=== PATIENT | male | born 1945 | race Two or more races ===

== ENCOUNTER → 2024-02-26 | Outpatient (CLI) | payer OTHER ==
[2024-02-26 07:40] LABS: Basophils # (auto) 0 10 ^3/uL (0-0.2); Basophils % (auto) 0.2 % (0.0-2.0); Eosinophils # (auto) 0.1 10 ^3/uL (0-0.8); Eosinophils % (auto) 1.5 % (0.0-7.0); Hematocrit 32.2 % (41.0-53.0); Hemoglobin 10.8 g/dL (13.5-17.5); Lymphocytes # (auto) 1.6 10 ^3/uL (0.4-5.4); Lymphocytes % (auto) 28.1 % (10.0-50.0); Mean Corpuscular Hemoglobin 31.9 pg (28.0-32.0); Mean Corpuscular Hgb Conc. 33.4 g/dL (32.0-36.0); Mean Corpuscular Volume 95.3 fL (80.0-100.0); Monocytes # (auto) 0.4 10 ^3/uL (0-1.3); Monocytes % (auto) 6.3 % (0.0-12.0); Neutrophils # (auto) 3.7 10 ^3/uL (1.6-8.6); Neutrophils % (auto) 63.9 % (37.0-80.0); Red Blood Cells 3.38 10^6/uL (4.5-5.90); Red Cell Distribution Width 16.2 % (11.8-14.3); White Blood Cell 5.7 10^3/uL (4.4-10.8)
[2024-02-26 08:05] LABS: Albumin 4.3 g/dL (3.2-4.8); Alkaline Phosphatase 87 U/L (46-116); Anion Gap 10 (5-15); Aspartate Aminotransferase 14 U/L (13-40); Bilirubin, Total 0.6 mg/dL (0.2-1.0); Blood Urea Nitrogen 23 mg/dL (9-23); Calcium 10.4 mg/dL (8.7-10.4); Carbon Dioxide 27 mmol/L (20-30); Chloride 104 mmol/L (98-107); Cholesterol 92 mg/dL (< 200); Glucose 87 mg/dL (74-106); HDL Cholesterol 53 mg/dL (40-59); LDL Cholesterol 20 mg/dL (< 100); Magnesium 1.9 mg/dL (1.6-2.6); Sodium 141 mmol/L (136-145); Triglycerides 84 mg/dL (< 150)
[2024-02-26 08:07] LABS: Alanine Aminotransferase < 9 U/L (7-40)
[2024-02-26 08:56] LABS: Uric Acid 5.5 mg/dL (3.7-9.2)
[2024-02-26 10:32] LABS: Folate (Folic Acid) 15.38 ng/mL (>5.38)
== END | disposition home or self-care (01) ==
LOC: EDBD 06:54 → LAB 06:54
PROVIDERS: ATTEND Internal Medicine
DX: N18.6 End stage renal disease (principal); Z00.00 Encounter for general adult medical examination without abnormal findings
CPT/HCPCS: 36415; 80053; 80061; 82306; 82607; 82746; 83036; 83735; 84443; 84550; 85025

== ENCOUNTER → 2024-04-09 | Outpatient (CLI) | payer OTHER ==
[2024-04-09 09:46] LABS: Basophils # (auto) 0 10 ^3/uL (0-0.2); Basophils % (auto) 0.7 % (0.0-2.0); Eosinophils # (auto) 0.1 10 ^3/uL (0-0.8); Eosinophils % (auto) 1.9 % (0.0-7.0); Hematocrit 31.6 % (41.0-53.0); Hemoglobin 10.5 g/dL (13.5-17.5); Lymphocytes # (auto) 0.9 10 ^3/uL (0.4-5.4); Lymphocytes % (auto) 22.5 % (10.0-50.0); Mean Corpuscular Hemoglobin 32.9 pg (28.0-32.0); Mean Corpuscular Hgb Conc. 33.3 g/dL (32.0-36.0); Mean Corpuscular Volume 98.8 fL (80.0-100.0); Monocytes # (auto) 0.3 10 ^3/uL (0-1.3); Monocytes % (auto) 6.2 % (0.0-12.0); Neutrophils # (auto) 2.8 10 ^3/uL (1.6-8.6); Neutrophils % (auto) 68.7 % (37.0-80.0); Nucleated Red Blood Cells % 0.1 %; Platelet Count (auto) 154 10^3/uL (140-450); Red Cell Distribution Width 16.4 % (11.8-14.3)
[2024-04-09 11:08] LABS: Alanine Aminotransferase 19 U/L (7-40); Albumin 4.7 g/dL (3.2-4.8); Alkaline Phosphatase 84 U/L (46-116); Anion Gap 12 (5-15); Aspartate Aminotransferase 18 U/L (13-40); BUN/Creatinine Ratio 4.2 (10.0-20.0); Bilirubin, Total 0.9 mg/dL (0.2-1.0); Blood Urea Nitrogen 21 mg/dL (9-23); Carbon Dioxide 28 mmol/L (20-30); Chloride 100 mmol/L (98-107); Cholesterol 101 mg/dL (< 200); Glucose 83 mg/dL (74-106); HDL Cholesterol 66 mg/dL (40-59); LDL Cholesterol 24 mg/dL (< 100); Magnesium 1.8 mg/dL (1.6-2.6); Potassium 3.6 mmol/L (3.5-5.1); Sodium 140 mmol/L (136-145); Total Protein 7.4 g/dL (5.7-8.2); Triglycerides 68 mg/dL (< 150)
[2024-04-09 11:42] LABS: Folate (Folic Acid) 39.93 ng/mL (>5.38)
[2024-04-09 11:49] LABS: Uric Acid 2.6 mg/dL (3.7-9.2)
== END | disposition home or self-care (01) ==
LOC: LAB 09:24
PROVIDERS: ATTEND Internal Medicine
DX: E03.9 Hypothyroidism, unspecified (principal); M79.89 Other specified soft tissue disorders; N18.6 End stage renal disease; D63.1 Anemia in chronic kidney disease; I89.0 Lymphedema, not elsewhere classified
CPT/HCPCS: 36415; 80053; 80061; 82306; 82607; 82746; 83036; 83735; 84443; 84550; 85025

== ENCOUNTER → 2024-07-25 | Outpatient (CLI) | payer OTHER ==
[2024-07-25 10:22] LABS: Basophils # (auto) 0 10 ^3/uL (0-0.2); Basophils % (auto) 0.3 % (0.0-2.0); Eosinophils # (auto) 0 10 ^3/uL (0-0.8); Eosinophils % (auto) 0.8 % (0.0-7.0); Hematocrit 33.9 % (41.0-53.0); Hemoglobin 11.4 g/dL (13.5-17.5); Lymphocytes % (auto) 25.8 % (10.0-50.0); Mean Corpuscular Hemoglobin 30.8 pg (28.0-32.0); Mean Corpuscular Hgb Conc. 33.5 g/dL (32.0-36.0); Mean Corpuscular Volume 92.1 fL (80.0-100.0); Monocytes # (auto) 0.3 10 ^3/uL (0-1.3); Monocytes % (auto) 8.5 % (0.0-12.0); Neutrophils # (auto) 2.5 10 ^3/uL (1.6-8.6); Neutrophils % (auto) 64.6 % (37.0-80.0); Platelet Count (auto) 162 10^3/uL (140-450); Red Blood Cells 3.69 10^6/uL (4.5-5.90); Red Cell Distribution Width 14.3 % (11.8-14.3); White Blood Cell 3.9 10^3/uL (4.4-10.8)
[2024-07-25 10:41] LABS: Alanine Aminotransferase 14 U/L (7-40); Anion Gap 9 (5-15); BUN/Creatinine Ratio 3.5 (10.0-20.0); Blood Urea Nitrogen 15 mg/dL (9-23); Carbon Dioxide 29 mmol/L (20-31); Chloride 102 mmol/L (98-107); Glucose 85 mg/dL (74-106); LDL Cholesterol 28 mg/dL (< 100); Potassium 3.8 mmol/L (3.5-5.1); Sodium 140 mmol/L (136-145); Triglycerides 73 mg/dL (< 150)
[2024-07-25 10:42] LABS: Albumin 4.2 g/dL (3.2-4.8); Aspartate Aminotransferase 17 U/L (13-40); Bilirubin, Total 0.5 mg/dL (0.2-1.0); Cholesterol 111 mg/dL (< 200); Total Protein 6.9 g/dL (5.7-8.2)
[2024-07-25 10:45] LABS: Alkaline Phosphatase 126 U/L (46-116); HDL Cholesterol 71 mg/dL (40-59)
[2024-07-25 11:30] LABS: Uric Acid 1.9 mg/dL (3.7-9.2)
[2024-07-25 11:43] LABS: Folate (Folic Acid) > 48.00 ng/mL (>5.38)
== END | disposition home or self-care (01) ==
LOC: LAB 09:52
PROVIDERS: ATTEND Nurse Practitioner Family
DX: E78.5 Hyperlipidemia, unspecified (principal); R79.89 Other specified abnormal findings of blood chemistry; R68.89 Other general symptoms and signs; R73.09 Other abnormal glucose
CPT/HCPCS: 36415; 80053; 80061; 82306; 82607; 82746; 83036; 84443; 84550; 85025

== ENCOUNTER 2024-09-18 13:34 | Emergency (ER) | payer OTHER ==
[~2024-09-18] VITALS: Ht 157.5 cm; Wt 58.1 kg
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
[2024-09-18 15:35] LABS: Carbon Dioxide 30 mmol/L (20-31); Potassium 4.8 mmol/L (3.5-5.1)
[2024-09-18 15:36] LABS: Calcium 9.6 mg/dL (8.7-10.4)
[2024-09-18 15:41] LABS: BUN/Creatinine Ratio 4.9 (10.0-20.0); Glucose 91 mg/dL (74-106)
[2024-09-18 15:44] LABS: Blood Urea Nitrogen 39 mg/dL (9-23); Chloride 97 mmol/L (98-107)
[2024-09-18 15:45] LABS: Basophils # (auto) 0 10 ^3/uL (0-0.2); Basophils % (auto) 0.5 % (0.0-2.0); Eosinophils # (auto) 0 10 ^3/uL (0-0.8); Eosinophils % (auto) 0.8 % (0.0-7.0); Hematocrit 38.1 % (41.0-53.0); Hemoglobin 12.3 g/dL (13.5-17.5); Lymphocytes # (auto) 1.2 10 ^3/uL (0.4-5.4); Lymphocytes % (auto) 20.3 % (10.0-50.0); Mean Corpuscular Hemoglobin 30.7 pg (28.0-32.0); Mean Corpuscular Hgb Conc. 32.3 g/dL (32.0-36.0); Monocytes # (auto) 0.6 10 ^3/uL (0-1.3); Monocytes % (auto) 10.2 % (0.0-12.0); Neutrophils % (auto) 68.2 % (37.0-80.0); Nucleated Red Blood Cells % 0.2 %; Platelet Count (auto) 153 10^3/uL (140-450); Red Blood Cells 4.01 10^6/uL (4.5-5.90); Red Cell Distribution Width 16.4 % (11.8-14.3); White Blood Cell 5.9 10^3/uL (4.4-10.8)
[2024-09-18 16:46] LABS: Anion Gap 12 (5-15); Sodium 139 mmol/L (136-145)
[2024-09-18] MEDS: CATHFLO ACTIVASE (ALTEPLASE) 2 MG VIAL IV ONE (18:36)
[2024-09-18 18:52] VITALS: BP 154/86; PULSE 114; RESP 17; TEMP 97.7; O2SAT 100
== END 2024-09-18 18:54 | disposition home or self-care (01) ==
LOC: ER 13:34
DX: T82.49XA Other complication of vascular dialysis catheter, initial encounter (principal); I10 Essential (primary) hypertension; Z99.2 Dependence on renal dialysis; X58.XXXA Exposure to other specified factors, initial encounter; Y93.89 Activity, other specified; Y92.89 Other specified places as the place of occurrence of the external cause; Y99.8 Other external cause status
CPT/HCPCS: 36415; 80048; 85025; 99283; J2997

== ENCOUNTER 2025-02-18 10:26 | Inpatient (IN) | payer MEDICARE, OTHER ==
[~2025-02-18] VITALS: Ht 165.1 cm; Wt 55.5 kg
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
[2025-02-18 11:46] LABS: Hematocrit 35.6 % (41.0-53.0); Hemoglobin 11.9 g/dL (13.5-17.5); Mean Corpuscular Hemoglobin 31.7 pg (28.0-32.0); Mean Corpuscular Volume 95.1 fL (80.0-100.0); Nucleated Red Blood Cells % 0.1 %
[2025-02-18 11:47] LABS: Chloride 101 mmol/L (98-107); Sodium 139 mmol/L (136-145)
[2025-02-18 11:48] LABS: Anion Gap 11 (5-15); Carbon Dioxide 27 mmol/L (20-31)
[2025-02-18 11:53] LABS: BUN/Creatinine Ratio 2.3 (10.0-20.0); Blood Urea Nitrogen 11 mg/dL (9-23); Glucose 76 mg/dL (74-106)
[2025-02-18 11:55] LABS: Calcium 8.5 mg/dL (8.7-10.4); Potassium 3.4 mmol/L (3.5-5.1)
[2025-02-18] MEDS ORDERED: ONDANSETRON HCL 4 MG/2 ML VIAL IV PRN (16:00)
[2025-02-18] MEDS ORDERED: ACETAMINOPHEN 325 MG TAB PO PRN (16:00)
[2025-02-18] MEDS ORDERED: DOCUSATE SOD 100 MG CAP PO PRN (16:00)
[2025-02-18] MEDS ORDERED: HYDROcodone-ACET 5/325MG TAB PO PRN (16:00)
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
[2025-02-18] MEDS ORDERED: NITROGLYCERIN 0.4 MG SL TAB SL PRN ×2 (18:00→18:15)
[2025-02-18] MEDS ORDERED: MORPHINE SULFATE INJ 2 MG/ml SYRG IV PRN ×2 (18:00→18:15)
[2025-02-18 19:30] VITALS: PULSE 76; RESP 12; O2SAT 99
[2025-02-18 20:14] LABS: Free T3 1.85 pg/mL (2.3-4.2); Free T4 (Free Thyroxine) 0.67 ng/dL (0.89-1.76)
[2025-02-18] MEDS: SEVELAMER 800 MG TAB PO SCH (20:43)
[2025-02-18 22:15] VITALS: BP 117/71; PULSE 77; RESP 16; TEMP 97.9; O2SAT 99
[2025-02-18 22:30] VITALS: BP 166/30; PULSE 75; PULSE 76; RESP 18; TEMP 98.5; O2SAT 99
[2025-02-18] MEDS ORDERED: LISI-275 PO (23:01)
[2025-02-18] MEDS ORDERED: CLON0.1T PO (23:01)
[2025-02-18] MEDS ORDERED: BUME1TAB3 PO (23:01)
[2025-02-18] MEDS ORDERED: CITA10TA5 PO (23:01)
[2025-02-18] MEDS ORDERED: HYDR-4902 PO (23:01)
[2025-02-18] MEDS ORDERED: GAB100C PO (23:01)
[2025-02-19] VITALS (9 sets, daily range): BP systolic 115–150; BP diastolic 56–86; PULSE 70–92; RESP 16–22; TEMP 97.1–98.4; O2SAT 90–100
[2025-02-19] MEDS: LEVOTHYROXINE SODIUM 50 MCG TAB PO ONE (02:29)
[2025-02-19] MEDS: SODIUM CHLOR 0.9% PF (SALINE LOCK) 10ML VIAL/SYR IV SCH (02:30)
[2025-02-19] MEDS ORDERED: LEVOTHYROXINE SODIUM 50 MCG TAB PO SCH (06:00)
[2025-02-19] MEDS: LEVOTHYROXINE SODIUM 25 MCG TAB PO SCH (06:40)
--- NOTE | 2025-02-19 08:46 | DVH ---
ULTRASOUND SOFT TISSUE HEAD AND NECK CLINICAL INDICATION: Elevated TSH TECHNIQUE: Multiple real time sonographic images of the thyroid were obtained. Comparison: None FINDINGS: The right thyroid gland measures 3.6 x 2.1 x 2.1 cm. The left thyroid gland measures approximately 3.8 x 1.1 x 1.3 cm. The isthmus measures 0.4 cm. IMPRESSION: 1. Normal Thyroid. [employer] TI-RADS Categories and Recommendations (2017): TR1: 0 points, Benign, No FNA TR2: 2 points, Not suspicious, No FNA TR3: 3 points, Mildly suspicious, FNA if > or = 2.5 cm, Follow if > or = 1.5 cm TR4: 4-6 points, Moderately Suspicious, FNA if > or = 1.5 cm, Follow if > or = 1.0 cm TR5: 7+ points, Highly Suspicious, FNA if > or = 1.0 cm, Follow if > or = 0.5 cm Follow-up ultrasound guidelines: TR5: yearly for 5 years, if no growth or change in TI-RADS level TR4: at 1, 2, 3 and 5 years, if no growth or change in TI-RADS level TR3: at 1, 3 and 5 years, if no growth or change in TI-RADS level If increased but below threshold for FNA, repeat in one year. Source: ACR Thyroid Imaging, Reporting and Data System (TI-RADS): White Paper of the ACR TI-RADS Committee. Jeanine hawkins al., J Am Anushka Radiol 2017;14:587-595.
[2025-02-19] MEDS: B-COMPLEX W/ C & FOLIC ACID(NEPHROVITE TAB) PO SCH (09:04)
--- NOTE | 2025-02-19 11:23 | DVH ---
CHEST RADIOGRAPH Indication: esrd Technique: Single frontal view of the chest was obtained Comparison: None FINDINGS: Lines and Tubes: None Lungs: No focal consolidation. Pleura: No effusion. No pneumothorax. Cardiomediastinal contours: Cardiomegaly. Bones: No acute osseous abnormality. IMPRESSION: Cardiomegaly with pulmonary edema.
--- NOTE | 2025-02-19 15:28 | DVHPNRES ---
Progress Note Date Seen: Feb 19, 2025 Resident Creating Document: RYAN VICTORIA RESIDENT Medical Necessity Reason Pt with a Central, PICC or Fol: No Subjective Review of Systems Patient is an 80-year-old male with past medical history of chronic renal failure and end-stage renal disease on hemodialysis who presented to [facility] ER for evaluation of abnormal lab. On normal lab reports done on February 17 at the dialysis center the patient was found to have a TSH level of 60 and he was asked to go to the ER for further evaluation. . Ultrasound was done which was found to be normal. Patient complains of back pain since 2 weeks. The patient's son reports that the patient has been feeling tired and sleepy and has lost appetite in the last 1 month. The patient's son mentions that he was put on a trial medication in the dialysis center a few weeks back which caused a decrease in his platelets. The patient was noted to have swelling in the right upper extremity for which ultrasound was done and a thrombus was reported in the jugular and cephalic veins. Heparin bolus was given and heparin drip was started for the same. Patient seen and examined at bedside. Patient is alert and oriented to time, place person and responding to all questions. Eyes: No Pain, No Vision change, No Conjunctivae inflammation, No Eyelid inflammation, No Other, No Redness ENT: No Ear pain, No Ear discharge, No Nose pain, No Nose discharge, No Nose congestion, No Mouth pain, No Mouth swelling, No Throat pain, No Throat swelling, No Other Cardiovascular: No Chest Pain, No Palpitations, No Orthopnea, No Paroxysmal No Dyspnea, No Edema, No Lt Headedness, No Other Respiratory: No Cough, No Dry, No Shortness of breath, No SOB with exertion, No Wheezing, No Hemoptysis, No Pleuritic Pain, No Sputum, No Other Gastrointestinal: No Nausea, No Vomiting, No Abdominal Pain, No Diarrhea, No Constipation, No Melena, No Hematochezia, No Other Genitourinary: No Dysuria, No Frequency, No Incontinence, No Hematuria, No Retention, No Other General Appearance: Cooperative. Well developed. Well nourished. NAD Head Exam: Normal inspection Neck Exam: Normal inspection. Non-tender. Normal alignment Pulmonary/Respiratory: Chest non-tender. Clear bilateral breath sounds, no crackles, no wheezing. Cardiovascular/Chest: Regular rate and rhythm. No murmurs. No JVD. Peripheral Pulses: 2+ Radial (R). 2+ Radial (L). 2+ Pedal (R). 2+ Pedal (L) Abdominal Exam: Normal bowel sounds. Soft. normal abdomen, no visible veins, Nontender. No hepatospenomegaly. No masses Ankle Exam: Negative ankle edema Lower extremities: Negative lower extremity edema Neuro/Mental Status: A&O x4. Coherent. Thoughts/Psych: Normal thought pattern. Appropriate mood and affect. Good judgement and insight Skin Exam: swelling on the right upper extremity with no conduction Objective vital signs Vital Sign Date Time Temp Pulse Resp B/P (MAP) Pulse Ox O2 Delivery O2 Flow Rate FiO2 02/19/25 13:00 97.9 92 22 150/85 (106) 98 97.9 02/19/25 08:15 Nasal Cannula* 2 28 Total Intake and Output 02/18/25 02/18/25 02/19/25 15:00 23:00 07:00 Intake Total 100 ml Balance 100 ml medications Current Medications Medications Dose Ordered Sig/Lilo Route Start Time Stop Time Status Last Admin Dose Admin Amlodipine Besylate 5 mg DAILY PO 02/19/25 10:00 02/19/25 09:05 5 MG Clonidine HCl 0.1 mg Q4HP PRN PO 02/18/25 16:00 Multivit/Ca Carb/ B Cmplx/FA/Prenat 1 tab DAILY PO 02/19/25 10:00 02/19/25 09:04 1 TAB Sevelamer HCl 800 mg TIDWM PO 02/18/25 18:00 02/19/25 11:34 800 MG Sodium Chloride 10 ml Q8HR IV 02/18/25 22:00 02/19/25 13:29 10 ML Acetaminophen/ Hydrocodone Bitart 1 tab Q4HP PRN PO 02/18/25 16:00 Ondansetron HCl 4 mg Q4HP PRN IV 02/18/25 16:00 Docusate Sodium 100 mg BIDPRN PRN PO 02/18/25 16:00 Acetaminophen 650 mg Q6HP PRN PO 02/18/25 16:00 Morphine Sulfate 2 mg Q30M PRN IV 02/18/25 18:15 Nitroglycerin 0.4 mg Q5MINP PRN SL 02/18/25 18:15 Levothyroxine Sodium 25 mcg QAM@0600 PO 02/19/25 06:00 02/19/25 06:40 25 MCG laboratory and microbiology Laboratory Tests 02/18/25 11:30 Test 02/18/25 11:30 Range/Units Serum Glucose 76 74-106 mg/dL Labs and/or images reviewed: Labs reviewed by me, Image(s) reviewed by me Problem List/Assessment/Plan Problem List/Assessment/Plan #hypothyroidism - medication induced? started on levothyroxine 25 mcg po daily #ESRD on hemodialysis scheduled for tomorrow #right upper extremity swelling ultrasound ordered for the same #physical therapy for back pain Plan discussed with Dr Poole Plan discussed with: Patient, Son My Orders My Orders Orders - RYAN VICTORIA Procedure Category Date Status Time Pt Request For Service PT 02/19/25 Logged 13:54 Rt Upper Dvt US 02/19/25 Taken 14:04 Date of Service: Feb 19, 2025 Billing Provider: AMELIA POOLE MD Common Visit Codes: [id number] INP/OBS CARE(HIGH) Secondary Visit Codes: [id number] CARE PLAN 30 MINUTES RYAN VICTORIA Feb 19, 2025 15:28 AMELIA POOLE MD Feb 23, 2025 21:11
--- NOTE | 2025-02-19 15:42 | DVH ---
CLINICAL HISTORY: SWELLING TECHNIQUE: Color and duplex doppler imaging of the right upper extremity veins and right subclavian v ein was performed. Vessel compression if possible was also performed. WID: COMPARISON: None FINDINGS: There is a peripheral nonocclusive hypoechoic thrombus in the right internal jugular vein. Cephalic vein demonstrates predominantly hypoechoic occlusive thrombus. The right axillary, basilic, brachial, ulnar, and radial veins are patent and demonstrate normal co mpressibility and flow. The right subclavian is patent. Note is made of an occluded cephalic vein to brachial artery fistula IMPRESSION: Peripheral nonocclusive hypoechoic thrombus in the right internal jugular vein. 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 ..
[2025-02-19 16:52] LABS: Hemoglobin 11.1 g/dL (13.5-17.5)
[2025-02-19 16:55] LABS: Hematocrit 34.1 % (41.0-53.0); Mean Corpuscular Hemoglobin 31.3 pg (28.0-32.0); Mean Corpuscular Volume 96.1 fL (80.0-100.0)
[2025-02-19] MEDS: HEPARIN SODIUM (PORCINE) 5000 UNITS/ML 1ML VIAL IV ONE (17:05)
[2025-02-19 17:16] LABS: INR 1.12 (0.9-1.15); Partial Thromboplastin Time 29.6 SEC (24.5-34.5); Prothrombin Time 11.7 sec (9.3-11.8)
--- NOTE | 2025-02-19 17:16 | DVHINCON2 ---
Date of service: Feb 19, 2025 Reason for Consultation esrd History of Present Illness 80 years old male with past medical history of ESRD on dialysis, hypertension, abdominal surgery, presented with chief complaints of abnormal labs with elevated TSH Last dialysis was yesterday has femoral catheter Patient recently had thrombocytopenia and currently enrolled in a clinical trial at dialysis center which was stopped when platelets started trending down Past Medical History per hpi Past Surgical History per hpi Allergies: Coded Allergies: NO KNOWN ALLERGIES (Unverified , 09/18/24) Home Meds Reported Medications Lisinopril (Lisinopril) 5 Mg Tab, 5 MG PO DAILY for 30 Days, MG 02/18/25 Hydrocodone-Acetaminophen (Hydrocodone Bitartrate/AC 5-325 mg) 1 Tab Tab, 1 TAB PO PRN for PAIN SCALE 1 THRU 6, TAB 02/18/25 Gabapentin (Gabapentin) 100 Mg Cap, 1 CAP PO TID 02/18/25 Citalopram Hydrobromide (Citalopram Hydrobromide) 10 Mg Tab, 1 TAB PO DAILY 02/18/25 Bumetanide (Bumetanide) 1 Mg Tab, 1 TAB PO DAILY 02/18/25 Clonidine Hydrochloride (Clonidine Hcl) 0.1 Mg Tab, 1 TAB PO TID 02/18/25 Current Medications Current Medications Medications (Trade) Dose Ordered Sig/Lilo Route PRN Reason Start Time Stop Time Status Last Admin Amlodipine Besylate (Norvasc Tablet) 5 mg DAILY PO 02/19/25 10:00 02/19/25 09:05 Multivit/Ca Carb/ B Cmplx/FA/Prenat (Nephro-H[place] Tablet) 1 tab DAILY PO 02/19/25 10:00 02/19/25 09:04 Sevelamer HCl (Renagel) 800 mg TIDWM PO 02/18/25 18:00 02/19/25 17:05 Sodium Chloride (Saline Lock Ns) 10 ml Q8HR IV 02/18/25 22:00 02/19/25 13:29 Nitroglycerin (Ntrostat Sublingual) 0.4 mg Q5MINP PRN SL FOR CHEST PAIN 02/18/25 18:00 02/18/25 17:57 DC Morphine Sulfate 2 mg Q30M PRN IV FOR CHEST PAIN 02/18/25 18:00 02/18/25 17:57 DC Morphine Sulfate 2 mg Q30M PRN IV FOR CHEST PAIN 02/18/25 18:15 Nitroglycerin (Ntrostat Sublingual) 0.4 mg Q5MINP PRN SL FOR CHEST PAIN 02/18/25 18:15 Levothyroxine Sodium (Synthroid Tablet) 50 mcg QAM@0600 PO 02/19/25 06:00 02/19/25 00:42 DC Levothyroxine Sodium (Synthroid Tablet) 25 mcg QAM@0600 PO 02/19/25 06:00 02/19/25 06:40 Heparin Sodium/ Dextrose 250 ml @ 13 mls/hr [id number] IV 02/19/25 15:45 Family History: Patient reports no known family medical history. Review of Systems per hpi H&P Exam Vital Signs/I&O Vital Sign Date Time Temp Pulse Resp B/P (MAP) Pulse Ox O2 Delivery O2 Flow Rate FiO2 02/19/25 16:59 97.1 81 18 115/56 (75) 90 97.1 02/19/25 08:15 Nasal Cannula* 2 28 Intake and Output 02/18/25 02/19/25 19:00 07:00 Intake Total 100 ml Balance 100 ml Intake Oral 100 ml Physical Exam General-not in any distress HEENT-normocephalic, no icterus, no pallor, neck supple Respiratory-fair air entry bilateral, no rhonchi, no wheeze [id number] heard, no murmurs appreciated Abdominal-soft, nontender, nondistended Musculoskeletal-no pedal edema, no calf tenderness Genitourinary-deferred Neuro-awake alert oriented x3, Psychiatric-not agitated, cooperative, Labs/Diagnostic Data Labs/Diagnostic Data Laboratory Tests Test 02/19/25 16:36 02/18/25 19:44 02/18/25 11:30 Range/Units White Blood Count 5.4 7.1 4.4-10.8 10^3/uL Red Blood Count 3.55 L 3.74 L 4.5-5.90 10^6/uL Hemoglobin 11.1 L 11.9 L 13.5-17.5 g/dL Hematocrit 34.1 L 35.6 L 41.0-53.0 % Mean Corpuscular Volume 96.1 95.1 80.0-100.0 fL Mean Corpuscular Hemoglobin 31.3 31.7 28.0-32.0 pg Mean Corpuscular Hemoglobin Concent 32.5 33.3 32.0-36.0 g/dL Red Cell Distribution Width 16.1 H 15.8 H 11.8-14.3 % Platelet Count 153 125 L 140-450 10^3/uL Mean Platelet Volume 8.6 8.4 6.9-10.8 fL Neutrophils (%) (Auto) 58.9 37.0-80.0 % Lymphocytes (%) (Auto) 25.8 10.0-50.0 % Monocytes (%) (Auto) 12.8 H 0.0-12.0 % Basophils (%) (Auto) 0.9 0.0-2.0 % Neutrophils # (Auto) 4.2 1.6-8.6 10 ^3/uL Lymphocytes # (Auto) 1.8 0.4-5.4 10 ^3/uL Monocytes # (Auto) 0.9 0-1.3 10 ^3/uL Free Thyroxine (T4) Calculated 0.67 L 0.89-1.76 ng/dL Free Triiodothyronine (T3) pg/mL 1.85 L 2.3-4.2 pg/mL Eosinophils (%) (Auto) 1.6 0.0-7.0 % Eosinophils # (Auto) 0.1 0-0.8 10 ^3/uL Basophils # (Auto) 0.1 0-0.2 10 ^3/uL Nucleated Red Blood Cells 0.1 % Sodium Level 139 136-145 mmol/L Potassium Level 3.4 L 3.5-5.1 mmol/L Chloride Level 101 98-107 mmol/L Carbon Dioxide Level 27 20-31 mmol/L Anion Gap 11 5-15 Blood Urea Nitrogen 11 9-23 mg/dL Creatinine 4.73 H 0.700-1.30 mg/dL Glomerular Filtration Rate Calc 12 >90 mL/min BUN/Creatinine Ratio 2.3 L 10.0-20.0 Serum Glucose 76 74-106 mg/dL Calcium Level 8.5 L 8.7-10.4 mg/dL Thyroid Stimulating Hormone (TSH) 59.46 H 0.55-4.78 uIU/mL Assessment ESRD on dialysis Hypothyroidism Thrombocytopenia--improving Hypertension Recommendations Dialysis will be tomorrow Rest of the management per hospitalist Plan discussed with: Patient CHRIS JEONG MD Feb 19, 2025 17:16
[2025-02-19] MEDS: HEPARIN DRIP/D5W 100UNITS/ML 250 ML IV SCH (17:44)
--- NOTE | 2025-02-19 18:09 | CONS ---
Pharmacy Clinical Information: HEPARIN DRIP PER PHARMACY SPOKE TO SUSAN HUNT REGARDING TO NEW HEPARIN DRIP ORDER CURRENT aPTT 02/19/2025 AT 1636: 29.6 HEPARIN BOLUS: 6000 UNITS IVP X1 PER MD INITIAL HEPARIN DRIP RATE: 1300 UNITS/HR ADMINISTERED BY GILBERT ON 02/19/2025 AT 1744 NEXT aPTT: 02/19/2025 AT 2344 SUSAN HUNT READ BACK INITIAL HEPARIN DRIP RATE 1300 UNITS/HR JOSE A Singleton Feb 19, 2025 18:09
[2025-02-19 18:44] LABS: Anisocytosis Slight; Total Cells Counted 100.0 (100)
[2025-02-20] VITALS (8 sets, daily range): BP systolic 111–157; BP diastolic 58–87; PULSE 59–92; RESP 16–19; TEMP 96.7–98.2; O2SAT 91–98
[2025-02-20 00:26] LABS: Prothrombin Time 12.7 sec (9.3-11.8)
[2025-02-20 00:27] LABS: INR 1.22 (0.9-1.15)
[2025-02-20 00:30] LABS: Partial Thromboplastin Time > 139.0 SEC (24.5-34.5)
[2025-02-20] MEDS: HEPARIN DRIP/D5W 100UNITS/ML 250 ML IV SCH ×2 (01:47→16:31)
[2025-02-20 08:11] LABS: Hematocrit 34.5 % (41.0-53.0); Hemoglobin 11.5 g/dL (13.5-17.5); Mean Corpuscular Hemoglobin 31.9 pg (28.0-32.0); Mean Corpuscular Volume 95.6 fL (80.0-100.0); Nucleated Red Blood Cells % 0.0 %
[2025-02-20 08:25] LABS: Chloride 101 mmol/L (98-107); INR 1.14 (0.9-1.15); Partial Thromboplastin Time 64.3 SEC (24.5-34.5); Potassium 3.7 mmol/L (3.5-5.1); Prothrombin Time 11.9 sec (9.3-11.8); Sodium 141 mmol/L (136-145)
[2025-02-20 08:26] LABS: Anion Gap 11 (5-15); Calcium 8.8 mg/dL (8.7-10.4); Carbon Dioxide 29 mmol/L (20-31)
[2025-02-20 08:31] LABS: BUN/Creatinine Ratio 3.2 (10.0-20.0); Glucose 80 mg/dL (74-106)
[2025-02-20 08:36] LABS: Blood Urea Nitrogen 25 mg/dL (9-23)
--- NOTE | 2025-02-20 10:27 | DVH ---
Exam: CT ABDOMEN WITHOUT CONTRAST History: intractable abdominal pain on the right side Comparison Study: None Technique: Multidetector spiral CT of the abdomen was performed from lung bases to iliac crest. Imagi ng was performed without IV contrast. Axial, coronal and sagittal multiplanar reformats were obtained from the axial data set by the technologist. Radiation Dose : CT Dose: CTDI volume is 6.05 mGy. Dose-length product is 229.74 mGy*cm Findings: Evaluation of solid organs is limited due to lack of intravenous contrast use. Lung Bases: Moderate bilateral pleural effusion. Dependent atelectasis. Cardiomegaly. Coronary arter y calcifications. Vascular calcifications of the aorta. Liver: The liver is normal in size. No focal lesions. Gallbladder and Biliary Tree: Unremarkable Spleen: Unremarkable Pancreas: The pancreas is grossly normal in appearance. Adrenal Glands: Unremarkable Kidneys: Bilateral renal atrophy. Visualized Bowel: Distended stomach. Moderate colonic stool. Ascites: Absent Lymphadenopathy: No mesenteric, retroperitoneal or periportal lymphadenopathy. Abdominal Wall and Mesentery: Post surgical changes in the anterior abdomen. Vasculature: Vascular calcifications of the aorta. Musculoskeletal: No aggressive focal bony lesions, acute fractures or dislocation. IMPRESSION: Postsurgical changes of the stomach with close approximation to bowel loops to the anterior abdominal wall. Moderate colonic stool. Distended stomach. Moderate bilateral pleural effusions.
[2025-02-20 14:46] LABS: INR 1.15 (0.9-1.15); Prothrombin Time 12.0 sec (9.3-11.8)
[2025-02-20 14:48] LABS: Partial Thromboplastin Time 92.2 SEC (24.5-34.5)
--- NOTE | 2025-02-20 15:01 | DVHPN2 ---
Progress Note Date Seen: Feb 20, 2025 Medical Necessity Reason Pt with a Central, PICC or Fol: No Subjective Review of Systems: Deferred Objective vital signs Vital Sign Date Time Temp Pulse Resp B/P (MAP) Pulse Ox O2 Delivery O2 Flow Rate FiO2 02/20/25 12:52 97.6 59 17 127/68 (87) 98 97.6 02/19/25 20:00 Nasal Cannula* 2 28 Total Intake and Output 02/19/25 02/19/25 02/20/25 15:00 23:00 07:00 Intake Total 200 ml 200 ml Balance 200 ml 200 ml medications Current Medications Medications Dose Ordered Sig/Lilo Route Start Time Stop Time Status Last Admin Dose Admin Amlodipine Besylate 5 mg DAILY PO 02/19/25 10:00 02/19/25 09:05 5 MG Clonidine HCl 0.1 mg Q4HP PRN PO 02/18/25 16:00 Multivit/Ca Carb/ B Cmplx/FA/Prenat 1 tab DAILY PO 02/19/25 10:00 02/20/25 09:32 1 TAB Sevelamer HCl 800 mg TIDWM PO 02/18/25 18:00 02/20/25 12:41 800 MG Sodium Chloride 10 ml Q8HR IV 02/18/25 22:00 02/20/25 05:28 10 ML Acetaminophen/ Hydrocodone Bitart 1 tab Q4HP PRN PO 02/18/25 16:00 Ondansetron HCl 4 mg Q4HP PRN IV 02/18/25 16:00 Docusate Sodium 100 mg BIDPRN PRN PO 02/18/25 16:00 Acetaminophen 650 mg Q6HP PRN PO 02/18/25 16:00 Morphine Sulfate 2 mg Q30M PRN IV 02/18/25 18:15 Nitroglycerin 0.4 mg Q5MINP PRN SL 02/18/25 18:15 Levothyroxine Sodium 25 mcg QAM@0600 PO 02/19/25 06:00 02/20/25 05:28 25 MCG Heparin Sodium/ Dextrose 250 ml @ 10 mls/hr Q24H IV 02/20/25 01:40 02/20/25 01:47 10 MLS/HR Examination: GENERAL:Abnormal, CVS:Abnormal, NEURO:Abnormal laboratory and microbiology Laboratory Tests 02/20/25 07:53 Test 02/20/25 07:53 Range/Units Serum Glucose 80 74-106 mg/dL Problem List/Assessment/Plan Problem List/Assessment/Plan ESRD on dialysis Hypothyroidism Thrombocytopenia--improving Hypertension cephalic vein thrombosis s/p CT scan heparin drip HD today pending vascular eval Plan discussed with: Patient My Orders My Orders Orders - MORENO PADILLA MD Procedure Category Date Status Time Hepatitis B Surface LAB 02/20/25 In Process Antigen 08:11 Total Time (mins): 36 MORENO PADILLA MD Feb 20, 2025 15:01
--- NOTE | 2025-02-20 15:27 | CONS ---
Pharmacy Clinical Information: HEPARIN DRIP CURRENTLY PAUSED PER APTT OF 92.2 AFTER 1 HOUR, WILL RE START AT RATE 700 UNITS/HR NEXT APTT DRAW SCHEDULED FOR 2230 PER RX PROTOCOL LEOPOLDO ELAM PHARMACIST Feb 20, 2025 15:27
--- NOTE | 2025-02-20 17:48 | DVHPNRES ---
Progress Note Date Seen: Feb 20, 2025 Resident Creating Document: RYAN VICTORIA RESIDENT Medical Necessity Reason Pt with a Central, PICC or Fol: No Subjective Review of Systems Patient is an 80-year-old male with past medical history of chronic renal failure and end-stage renal disease on hemodialysis who presented to [facility] ER for evaluation of abnormal lab. On normal lab reports done on February 17 at the dialysis center the patient was found to have a TSH level of 60 and he was asked to go to the ER for further evaluation. . Ultrasound was done which was found to be normal. Patient complains of back pain since 2 weeks. The patient's son reports that the patient has been feeling tired and sleepy and has lost appetite in the last 1 month. The patient's son mentions that he was put on a trial medication in the dialysis center a few weeks back which caused a decrease in his platelets. The patient was noted to have swelling in the right upper extremity for which ultrasound was done and a thrombus was reported in the jugular and cephalic veins. Heparin bolus was given and heparin drip was started for the same. Patient complained of abdominal pain and a right sided mass was seen on examination for which CT abdomen was ordered. Patient seen and examined at bedside. Patient is alert and oriented to time, place person and responding to all questions. Eyes: No Pain, No Vision change, No Conjunctivae inflammation, No Eyelid inflammation, No Other, No Redness ENT: No Ear pain, No Ear discharge, No Nose pain, No Nose discharge, No Nose congestion, No Mouth pain, No Mouth swelling, No Throat pain, No Throat swelling, No Other Cardiovascular: No Chest Pain, No Palpitations, No Orthopnea, No Paroxysmal No Dyspnea, No Edema, No Lt Headedness, No Other Respiratory: No Cough, No Dry, No Shortness of breath, No SOB with exertion, No Wheezing, No Hemoptysis, No Pleuritic Pain, No Sputum, No Other Gastrointestinal: No Nausea, No Vomiting, mild Abdominal Pain, No Diarrhea, No Constipation, No Melena, No Hematochezia, No Other Genitourinary: No Dysuria, No Frequency, No Incontinence, No Hematuria, No Retention, No Other General Appearance: Cooperative. Well developed. Well nourished. NAD Head Exam: Normal inspection Neck Exam: Normal inspection. Non-tender. Normal alignment Pulmonary/Respiratory: Chest non-tender. Clear bilateral breath sounds, no crackles, no wheezing. Cardiovascular/Chest: Regular rate and rhythm. No murmurs. No JVD. Peripheral Pulses: 2+ Radial (R). 2+ Radial (L). 2+ Pedal (R). 2+ Pedal (L) Abdominal Exam: Normal bowel sounds. Soft. normal abdomen, no visible veins, t enderness more on right than left, No hepatospenomegaly. No masses Ankle Exam: Negative ankle edema Lower extremities: Negative lower extremity edema Neuro/Mental Status: A&O x4. Coherent. Thoughts/Psych: Normal thought pattern. Appropriate mood and affect. Good judgement and insight Skin Exam: swelling on the right upper extremity with no conduction Objective vital signs Vital Sign Date Time Temp Pulse Resp B/P (MAP) Pulse Ox O2 Delivery O2 Flow Rate FiO2 02/20/25 17:10 97.8 92 18 131/87 (102) 96 97.8 02/20/25 08:00 Nasal Cannula* 2 28 Total Intake and Output 02/19/25 02/19/25 02/20/25 15:00 23:00 07:00 Intake Total 200 ml 200 ml Balance 200 ml 200 ml medications Current Medications Medications Dose Ordered Sig/Lilo Route Start Time Stop Time Status Last Admin Dose Admin Amlodipine Besylate 5 mg DAILY PO 02/19/25 10:00 02/19/25 09:05 5 MG Clonidine HCl 0.1 mg Q4HP PRN PO 02/18/25 16:00 Multivit/Ca Carb/ B Cmplx/FA/Prenat 1 tab DAILY PO 02/19/25 10:00 02/20/25 09:32 1 TAB Sevelamer HCl 800 mg TIDWM PO 02/18/25 18:00 02/20/25 12:41 800 MG Sodium Chloride 10 ml Q8HR IV 02/18/25 22:00 02/20/25 14:00 10 ML Acetaminophen/ Hydrocodone Bitart 1 tab Q4HP PRN PO 02/18/25 16:00 Ondansetron HCl 4 mg Q4HP PRN IV 02/18/25 16:00 Docusate Sodium 100 mg BIDPRN PRN PO 02/18/25 16:00 Acetaminophen 650 mg Q6HP PRN PO 02/18/25 16:00 Morphine Sulfate 2 mg Q30M PRN IV 02/18/25 18:15 Nitroglycerin 0.4 mg Q5MINP PRN SL 02/18/25 18:15 Levothyroxine Sodium 25 mcg QAM@0600 PO 02/19/25 06:00 02/20/25 05:28 25 MCG Heparin Sodium/ Dextrose 250 ml @ 7 mls/hr Q24H IV 02/20/25 16:30 02/20/25 16:31 7 MLS/HR laboratory and microbiology Laboratory Tests 02/20/25 07:53 Test 02/20/25 07:53 Range/Units Serum Glucose 80 74-106 mg/dL Problem List/Assessment/Plan Problem List/Assessment/Plan #hypothyroidism - medication induced? started on levothyroxine 25 mcg po daily #ESRD on hemodialysis hemodialysis scheduled for today #right upper extremity swelling due to IJ thrombus on oral anticoagulants for the same #abdominal pain with a right sided mass CT abdomen ordered #vascular surgery consulted asked to be put on anticoagulants and follow up in outpatient #physical therapy for back pain Plan discussed with Dr Poole Plan discussed with: Patient, Son My Orders My Orders Orders - RYAN VICTORIA RESIDENT Procedure Category Date Status Time Heparin Protocol [facility] 02/19/25 In Process 17:58 Heparin Per Pharmacy [facility] 02/20/25 In Process Protocol 00:47 Complete Blood Count LAB 02/21/25 Verified 04:00 Heparin Per Pharmacy [facility] 02/20/25 In Process Protocol 08:52 Consult CONS 02/20/25 Transmitted Vascular/Endovascular 13:01 Heparin Drip/D5w PHA 02/20/25 In Process 100units/Ml 16:30 PTPTT LAB 02/20/25 Logged 22:30 Heparin Per Pharmacy [facility] 02/20/25 In Process Protocol 15:25 Date of Service: Feb 20, 2025 Billing Provider: AMELIA POOLE MD Common Visit Codes: [id number] INP/OBS CARE(HIGH) RYAN VICTORIA RESIDENT Feb 20, 2025 17:48 AMELIA POOLE MD Feb 23, 2025 21:11
[2025-02-20] MEDS: APIXABAN 5 MG TAB PO SCH (22:00)
[2025-02-21 01:00] VITALS: BP 120/60; PULSE 66; RESP 17; TEMP 96.6; O2SAT 93
[2025-02-21 05:00] VITALS: BP 119/66; PULSE 75; RESP 16; TEMP 97.7; O2SAT 93
[2025-02-21 08:00] VITALS: PULSE 80; RESP 17; O2SAT 91
[2025-02-21 09:00] VITALS: BP 160/101; PULSE 60; RESP 17; TEMP 97.9; O2SAT 98
[2025-02-21 09:12] LABS: Chloride 100 mmol/L (98-107); Potassium 4.0 mmol/L (3.5-5.1); Sodium 141 mmol/L (136-145)
[2025-02-21 09:13] LABS: Anion Gap 12 (5-15); Calcium 9.1 mg/dL (8.7-10.4); Carbon Dioxide 29 mmol/L (20-31)
[2025-02-21 09:18] LABS: BUN/Creatinine Ratio 2.6 (10.0-20.0); Blood Urea Nitrogen 17 mg/dL (9-23); Glucose 75 mg/dL (74-106)
--- NOTE | 2025-02-21 11:19 | DVHPN2 ---
Progress Note Date Seen: Feb 21, 2025 Medical Necessity Reason Pt with a Central, PICC or Fol: No Subjective Patient reports: No new complaints Objective vital signs Vital Sign Date Time Temp Pulse Resp B/P (MAP) Pulse Ox O2 Delivery O2 Flow Rate FiO2 02/21/25 10:00 93/73 02/21/25 09:00 97.9 60 17 98 97.9 02/20/25 20:00 Nasal Cannula* 2 28 Total Intake and Output 02/20/25 02/20/25 02/21/25 15:00 23:00 07:00 Intake Total 630 ml 850 ml Balance 630 ml 850 ml medications Current Medications Medications Dose Ordered Sig/Lilo Route Start Time Stop Time Status Last Admin Dose Admin Amlodipine Besylate 5 mg DAILY PO 02/19/25 10:00 02/19/25 09:05 5 MG Clonidine HCl 0.1 mg Q4HP PRN PO 02/18/25 16:00 Multivit/Ca Carb/ B Cmplx/FA/Prenat 1 tab DAILY PO 02/19/25 10:00 02/21/25 10:18 1 TAB Sevelamer HCl 800 mg TIDWM PO 02/18/25 18:00 02/21/25 08:21 800 MG Sodium Chloride 10 ml Q8HR IV 02/18/25 22:00 02/21/25 06:40 10 ML Acetaminophen/ Hydrocodone Bitart 1 tab Q4HP PRN PO 02/18/25 16:00 Ondansetron HCl 4 mg Q4HP PRN IV 02/18/25 16:00 Docusate Sodium 100 mg BIDPRN PRN PO 02/18/25 16:00 Acetaminophen 650 mg Q6HP PRN PO 02/18/25 16:00 Morphine Sulfate 2 mg Q30M PRN IV 02/18/25 18:15 Nitroglycerin 0.4 mg Q5MINP PRN SL 02/18/25 18:15 Levothyroxine Sodium 25 mcg QAM@0600 PO 02/19/25 06:00 02/21/25 06:40 25 MCG Apixaban 10 mg BID PO 02/20/25 22:00 02/27/25 10:01 02/21/25 10:17 10 MG Examination: GENERAL:Normal, CVS:Normal laboratory and microbiology Laboratory Tests 02/21/25 08:05 02/20/25 07:53 Test 02/21/25 08:05 Range/Units Serum Glucose 75 74-106 mg/dL Problem List/Assessment/Plan Problem List/Assessment/Plan ESRD on dialysis Hypothyroidism Thrombocytopenia--improving Hypertension cephalic vein thrombosis on eliquis for AC s/p HD yesterday will continue regular schedule HD if remains admitted Plan discussed with: Patient Total Time (mins): 20 MORENO PADILLA MD Feb 21, 2025 11:19
[2025-02-21 13:00] VITALS: BP 122/71; PULSE 79; RESP 19; TEMP 98.5; O2SAT 93
[2025-02-21] MEDS ORDERED: APIX2.5T PO (15:31)
[2025-02-21] MEDS ORDERED: APIX5TAB PO (15:31)
[2025-02-21] MEDS ORDERED: LEVO25TA6 PO (15:46)
[2025-02-21 17:00] VITALS: BP 114/67; PULSE 86; RESP 20; TEMP 98.4; O2SAT 91
--- NOTE | 2025-02-21 17:27 | DVHDSRES ---
Discharge Summary Date of Admission Resident Creating Document: RYAN VICTORIA RESIDENT Feb 18, 2025 at 17:48 Date of Discharge: Feb 21, 2025 Admitting Diagnosis severe hypothyroidism Labs/Diagnostic Data: Laboratory Results Test 02/21/25 08:05 02/20/25 14:01 02/20/25 07:53 02/19/25 16:36 Sodium Level 141 mmol/L (136-145) Potassium Level 4.0 mmol/L (3.5-5.1) Chloride Level 100 mmol/L (98-107) Carbon Dioxide Level 29 mmol/L (20-31) Anion Gap 12 (5-15) Blood Urea Nitrogen 17 mg/dL (9-23) Creatinine 6.58 mg/dL (0.700-1.30) Glomerular Filtration Rate Calc 8 mL/min (>90) BUN/Creatinine Ratio 2.6 (10.0-20.0) Serum Glucose 75 mg/dL (74-106) Calcium Level 9.1 mg/dL (8.7-10.4) Prothrombin Time 12.0 sec (9.3-11.8) Prothrombin Time INR 1.15 (0.9-1.15) Activated Partial Thromboplast Time 92.2 SEC (24.5-34.5) White Blood Count 5.4 10^3/uL (4.4-10.8) Red Blood Count 3.61 10^6/uL (4.5-5.90) Hemoglobin 11.5 g/dL (13.5-17.5) Hematocrit 34.5 % (41.0-53.0) Mean Corpuscular Volume 95.6 fL (80.0-100.0) Mean Corpuscular Hemoglobin 31.9 pg (28.0-32.0) Mean Corpuscular Hemoglobin Concent 33.3 g/dL (32.0-36.0) Red Cell Distribution Width 16.2 % (11.8-14.3) Platelet Count 159 10^3/uL (140-450) Mean Platelet Volume 8.2 fL (6.9-10.8) Neutrophils (%) (Auto) 56.8 % (37.0-80.0) Lymphocytes (%) (Auto) 31.0 % (10.0-50.0) Monocytes (%) (Auto) 9.0 % (0.0-12.0) Eosinophils (%) (Auto) 2.1 % (0.0-7.0) Basophils (%) (Auto) 1.1 % (0.0-2.0) Neutrophils # (Auto) 3.1 10 ^3/uL (1.6-8.6) Lymphocytes # (Auto) 1.7 10 ^3/uL (0.4-5.4) Monocytes # (Auto) 0.5 10 ^3/uL (0-1.3) Eosinophils # (Auto) 0.1 10 ^3/uL (0-0.8) Basophils # (Auto) 0.1 10 ^3/uL (0-0.2) Nucleated Red Blood Cells 0.0 % Hepatitis B Surface Antigen Negative (Negative) Differential Total Cells Counted 100.0 (100) Neutrophils % (Manual) 57 (37.0-80.0) Band Neutrophils % (Manual) 2 Lymphocytes % (Manual) 30 (10.0-50.0) Monocytes % (Manual) 9 (0-12) Eosinophils % (Manual) 2 (0-7) Basophils % (Manual) 0 (0.0-2.0) Metamyelocytes % (manual) 0 Myelocytes % (Manual) 0 Promyelocytes % (Manual) 0 Blast Cells % (Manual) 0 Reactive Lymphocytes 0 Platelet Estimate Adequate Anisocytosis (manual) Slight Test 02/18/25 19:44 02/18/25 11:30 Free Thyroxine (T4) Calculated 0.67 ng/dL (0.89-1.76) Free Triiodothyronine (T3) pg/mL 1.85 pg/mL (2.3-4.2) Thyroid Stimulating Hormone (TSH) 59.46 uIU/mL (0.55-4.78) Other Laboratory Tests 02/21/25 08:05 02/20/25 07:53 Brief Hx & Hospital Course: Patient is an 80-year-old male with past medical history of chronic renal failure and end-stage renal disease on hemodialysis who presented to [facility] ER for evaluation of abnormal lab. On normal lab reports done on February 17 at the dialysis center the patient was found to have a TSH level of 60 and he was asked to go to the ER for further evaluation. Patient complained of back pain since 2 weeks. The patient's son reported that the patient had been feeling tired and sleepy and had lost appetite in the last 1 month. The patient's son mentions that he was put on a trial medication in the dialysis center a few weeks back which caused a decrease in his platelets. The patient was noted to have swelling in the right upper extremity for which ultrasound was done and a thrombus was reported in the jugular and cephalic veins. Heparin bolus was given and heparin drip was started for the same.Then the patient was switched to Eliquis 5mg po bd after consultation with vascular surgeon. Patient complained of abdominal pain and a right sided mass was seen on examination for which CT abdomen was ordered which was unremarkable. Patient being discharged and sent to [facility]. Patient seen and examined at bedside. Patient is alert and oriented to time, place person and responding to all questions. Eyes: No Pain, No Vision change, No Conjunctivae inflammation, No Eyelid inflammation, No Other, No Redness ENT: No Ear pain, No Ear discharge, No Nose pain, No Nose discharge, No Nose congestion, No Mouth pain, No Mouth swelling, No Throat pain, No Throat swelling, No Other Cardiovascular: No Chest Pain, No Palpitations, No Orthopnea, No Paroxysmal No Dyspnea, No Edema, No Lt Headedness, No Other Respiratory: No Cough, No Dry, No Shortness of breath, No SOB with exertion, No Wheezing, No Hemoptysis, No Pleuritic Pain, No Sputum, No Other Gastrointestinal: No Nausea, No Vomiting, mild Abdominal Pain, No Diarrhea, No Constipation, No Melena, No Hematochezia, No Other Genitourinary: No Dysuria, No Frequency, No Incontinence, No Hematuria, No Retention, No Other General Appearance: Cooperative. Well developed. Well nourished. NAD Head Exam: Normal inspection Neck Exam: Normal inspection. Non-tender. Normal alignment Pulmonary/Respiratory: Chest non-tender. Clear bilateral breath sounds, no crackles, no wheezing. Cardiovascular/Chest: Regular rate and rhythm. No murmurs. No JVD. Peripheral Pulses: 2+ Radial (R). 2+ Radial (L). 2+ Pedal (R). 2+ Pedal (L) Abdominal Exam: Normal bowel sounds. Soft. normal abdomen, no visible veins, t enderness more on right than left, No hepatospenomegaly. No masses Ankle Exam: Negative ankle edema Lower extremities: Negative lower extremity edema Neuro/Mental Status: A&O x4. Coherent. Thoughts/Psych: Normal thought pattern. Appropriate mood and affect. Good judgement and insight Skin Exam: swelling on the right upper extremity with no conduction. The swelling has reduced since yesterday. Condition at Discharge: Stable Final Diagnosis/Problems List #hypothyroidism, severe- medication induced? #ESRD on hemodialysis #right upper extremity swelling due to IJ thrombus on oral anticoagulants for the same #cephalic vein thrombus #thrombocytopenia #hypertension # secondary hypercoagulable state #abdominal pain likely due to constipation, old surgical pain #constipation Discharge Disposition: Residential Facility Discharge Instruct/Medications Diet: Renal Activity: No Restrictions, As Tolerated Follow Up/Referral: pls follow up with pcp in 1-2 weeks pls follow up with endocrinology pls follow up with nephrology for scheduled dialysis sessions Medications: apixaban 5mg po bid for 7 days only. THEN, eliquis 2.5mg bid for 3 months levothyroxine 25mcg daily in the AM on an empty stomach Scheduled Apixaban Base (Eliquis), 5 MG PO BID Apixaban Base (Eliquis), 2.5 MG PO BID Bumetanide (Bumetanide), 1 TAB PO DAILY, (Reported) Citalopram Hydrobromide (Citalopram Hydrobromide), 1 TAB PO DAILY, (Reported) Clonidine Hydrochloride (Clonidine Hcl), 1 TAB PO TID, (Reported) Gabapentin (Gabapentin), 1 CAP PO TID, (Reported) Levothyroxine Sodium (Levothyroxine Sodium), 1 TAB PO DAILY Lisinopril (Lisinopril), 5 MG PO DAILY, (Reported) Scheduled PRN Hydrocodone-Acetaminophen (Hydrocodone Bitartrate/AC 5-325 mg), 1 TAB PO for PAIN SCALE 1 THRU 6, (Reported) Discharge Statement: "Patient was advised to return to the ER or call 911 if any headaches, dizziness, shortness of breath, chest pain, abdominal pain, bleeding, fevers, or worsening of medical condition. Patient was counseled about treatment plan, medications, possible side effects, patientverbalized understanding. All questions were answered to the best of my ability. This discharge took greater then 30 minutes in planning, reviewing documentation, counseling the patient, and discussing with other team members." ASSESSMENT ASSESSMENT Assessment #hypothyroidism, severe- medication induced? #ESRD on hemodialysis #right upper extremity swelling due to IJ thrombus on oral anticoagulants for the same # secondary hypercoagulable state #intractable acute abdominal pain Date of Service: Feb 21, 2025 Billing Provider: AMELIA CASTRO MD Common Visit Codes: [id number] DISCH DAY >30min RYAN VICTORIA RESIDENT Feb 21, 2025 17:27 AMELIA CASTRO MD Feb 23, 2025 21:12
== END 2025-02-21 20:05 | DRG 299 ==
LOC: EDBD 10:26 → ER 10:26 → OVERFLOW 17:48 → ER 17:49 → TELE-CENTR 21:50
PROVIDERS: ADMIT Internal Medicine Geriatric Medicine; ATTEND Internal Medicine
PROC: 5A1D70Z Performance of Urinary Filtration, Intermittent, Less than 6 Hours Per Day (ICD-10-PCS; principal; 2025-02-20)
DX: I82.611 Acute embolism and thrombosis of superficial veins of right upper extremity (principal); N18.6 End stage renal disease; I12.0 Hypertensive chronic kidney disease with stage 5 chronic kidney disease or end stage renal disease; D68.69 Other thrombophilia; E03.9 Hypothyroidism, unspecified; I82.C11 Acute embolism and thrombosis of right internal jugular vein; I16.0 Hypertensive urgency; D69.6 Thrombocytopenia, unspecified; K59.00 Constipation, unspecified; Z99.2 Dependence on renal dialysis; T50.995A Adverse effect of other drugs, medicaments and biological substances, initial encounter; M54.9 Dorsalgia, unspecified; G89.18 Other acute postprocedural pain; Z88.2 Allergy status to sulfonamides; Z79.890 Hormone replacement therapy; Y92.89 Other specified places as the place of occurrence of the external cause
CPT/HCPCS: 36415; 71045; 74150; 76536; 80048; 84439; 84443; 84481; 85007; 85025; 85027; 85610; 85730; 87340; 90935; 93971; 97110; 97116; 97163; 97530; G0378